=== PATIENT | male | born 1965 | race Caucasian/White ===

== ENCOUNTER → 2016-06-17 | Outpatient (CLI) | payer OTHER ==
[~2016-06-17] MED LIST: BISOPROLOL FUMA10 MG PO; LISINOPRIL 20MG20 MG PO; SERTRALINE 50MG50 MG PO
[2016-06-17 11:54] LABS: LYMPH # 1.9 K/mm3 (0.7-4.5); LYMPH % 22.4 % (10-50)
[2016-06-17 14:33] LABS: BUN 7 mg/dL (7-18)
[2016-06-17 14:36] LABS: GFR (ESTIMATED) 120 ML/MIN (>60)
== END ==
LOC: LAB 11:42
PROVIDERS: Internal Medicine
DX: D58.2 Other hemoglobinopathies (principal); E83.119 Hemochromatosis, unspecified